=== PATIENT | female | born 1990 | race Two or more races ===

== ENCOUNTER 2024-04-26 08:52 | Day surgery (SDC) | payer OTHER ==
[~2024-04-26 08:52] MED LIST: ROSUVASTATIN CAL5 MG PO; SPRINTEC 28 DA1 EACH PO
[2024-04-26] MEDS ORDERED: CEFTRIAXONE SODIUM 2,000 MG VIAL ONE (09:47)
[2024-04-26] MEDS ORDERED: METRONIDAZOLE/SODIUM CHLORIDE 500 MG/100 ML PIGGYBACK IV ONE ×2 (09:48→11:30)
[2024-04-26] MEDS ORDERED: DIBUCAINE 30 GM TUBE ONE (10:53)
[2024-04-26] MEDS ORDERED: POVIDONE-IODINE 118 ML BOTT TOP ONE ×2 (10:53→11:30)
[2024-04-26] MEDS ORDERED: HEMOSTATIC MATRIX 1 KIT KIT TOP ONE ×2 (10:53→11:30)
[2024-04-26] MEDS ORDERED: CEFTRIAXONE SODIUM 2,000 MG VIAL IV ONE (11:15)
[2024-04-26] MEDS ORDERED: DIBUCAINE 30 GM TUBE RECTAL ONE (11:30)
[2024-04-26] MEDS ORDERED: HYDROGEN PEROXIDE 473 ML BOTTLE TOP ONE (11:37)
[2024-04-26] MEDS ORDERED: HYDROGEN PEROXIDE 118 ML SOLUTION TOP ONE (11:45)
== END 2024-04-26 17:00 | disposition home or self-care (01) ==
LOC: CIR.AMB 08:52
PROVIDERS: ATTEND Colon & Rectal Surgery
DX: K60.5 Anorectal fistula (principal); K60.3 Anal fistula

== ENCOUNTER 2024-10-11 05:30 | Day surgery (SDC) | payer OTHER ==
[~2024-10-11 05:30] MED LIST changes: +DAILY VALUE1 EACH PO
[2024-10-11] MEDS ORDERED: CEFTRIAXONE SODIUM 2,000 MG VIAL ONE ×2 (09:11→11:05)
[2024-10-11] MEDS ORDERED: METRONIDAZOLE/SODIUM CHLORIDE 500 MG/100 ML PIGGYBACK IV ONE ×3 (09:12→11:05)
[2024-10-11] MEDS ORDERED: DIBUCAINE 30 GM TUBE ONE ×2 (09:54→10:30)
[2024-10-11] MEDS ORDERED: POVIDONE-IODINE 118 ML BOTT TOP ONE ×4 (09:54→11:04)
[2024-10-11] MEDS ORDERED: HEMOSTATIC MATRIX 1 KIT KIT TOP ONE ×4 (09:55→11:03)
[2024-10-11] MEDS ORDERED: BUPIVACAINE HCL/MPF 0.5% 30ML VIAL ONE (10:31)
[2024-10-11] MEDS ORDERED: LIDOCAINE HCL 1%/EPINEPHRINE 20ML VIAL IJ ONE ×3 (10:31→11:05)
[2024-10-11] MEDS ORDERED: DIBUCAINE 30 GM TUBE RECTAL ONE (10:45)
[2024-10-11] MEDS ORDERED: BUPIVACAINE HCL 30 ML VIAL IJ ONE (10:45)
[2024-10-11] MEDS ORDERED: CEFTRIAXONE SODIUM 2,000 MG VIAL IV ONE (10:45)
== END 2024-10-11 16:40 | disposition home or self-care (01) ==
LOC: CIR.AMB 05:30
PROVIDERS: ATTEND Colon & Rectal Surgery
DX: N82.3 Fistula of vagina to large intestine (principal); K64.2 Third degree hemorrhoids; K60.50 Anorectal fistula, unspecified; N81.6 Rectocele; R15.9 Full incontinence of feces

== ENCOUNTER 2024-10-18 16:20 | Emergency (ER) | payer OTHER ==
[~2024-10-18] VITALS: Ht 165.1 cm; Wt 86.2 kg
[2024-10-18 16:44] VITALS: BP 104/73; O2SAT 99
[2024-10-18] MEDS ORDERED: 0.9 % SODIUM CHLORIDE 1,000 ML IV SCH (17:15)
[2024-10-18] MEDS ORDERED: PIPERACILLIN/TAZOBACTAM SODIUM 3.375 GM VIAL IV ONE (17:41)
[2024-10-18] MEDS ORDERED: PIPERACILLIN/TAZOBACTAM SODIUM 3.375 GM in 0.9 % SODIUM CHLORIDE 100 ML IV SCH (18:00)
[2024-10-18 18:09] LABS: HEMATOCRIT 44.9 % (36.0-45.00); HEMOGLOBIN 15.3 g/dL (12.0-15.00); MEAN CELL VOLUME 88.1 fL (80.00-100.00); PLATELET COUNT 341 K/uL (150-450); RED CELL DISTRIBUTION WIDTH 13.2 % (11.5-14.5)
[2024-10-18 18:24] LABS: INR 1.02; PARTIAL THROMBOPLASTIN TIME 27.8 SECONDS (22.0-34.0); PROTHROMBIN TIME 11.1 SECONDS (9.0-11.5)
[2024-10-18 18:31] LABS: ALBUMIN 3.8 gm/dL (3.4-5.0); BILIRUBIN TOTAL 0.63 mg/dL (0.3-1.2); CALCIUM 9.6 mg/dL (8.5-10.1); CREATININE SERUM 0.73 mg/dL (0.55-1.02); GFR 91.81; GLOBULINA 4.5 G/DL (2.4-3.5); POTASSIUM 3.96 mEq/L (3.5-5.1); TOTAL PROTEIN 8.3 gm/dL (6.4-8.2)
== END 2024-10-18 22:40 | disposition home or self-care (01) ==
LOC: ER 16:22
PROVIDERS: General Practice
DX: N32.1 Vesicointestinal fistula (principal)